=== PATIENT | female | born 1995 | race Caucasian/White ===

== ENCOUNTER → 2022-11-18 15:49 | Outpatient (CLI) | payer OTHER, SELFPAY ==
--- NOTE | 2022-11-18 | DI.US.S_ITS ---
PROCEDURE: US OB >= 14 WEEKS FETUS INDICATIONS: ANATOMY OUTSIDE/PRIOR DATING DATA: Last menstrual period (LMP): 06/25/2022. LMP-based estimated date of delivery (KRISTINA): 04/01/2023. First dating scan (date and location): Today. TECHNIQUE: Real-time scanning was performed of the fetus, with image documentation and biometric measurements. COMPARISON: None. FINDINGS: General: A single living intrauterine gestation is present. Presentation: Cephalic. Placenta: Placental position is anterior , without previa. Amniotic fluid index: 13.7 cm, normal range is 5-24 cm. Single deepest vertical pocket is 3.9 cm. heart rate: 155 beats per minute. Maternal cervical canal: 3.9 cm long. Normal lower limit is 2.5 cm. biometrics: Biparietal diameter: 4.5 cm. 19 weeks 4 days Head circumference: 17.7 cm. 20 weeks 1 day. Abdominal circumference: 14.6 cm. 19 weeks 6 days. Femur length: 3.2 cm. 20 weeks 0 days. Clinically estimated gestational age: 20 weeks 6 days Composite gestational age from present scan: 19 weeks 6 days Estimated weight and percentile: 324 grams, 10th percentile based on estimated gestational age by LMP. Anatomic survey: Neuro: Ventricles are non-dilated at less than 10 mm. Cisterna magna is normal at 3-11 mm. Cerebellum is normal in size and morphology. Nuchal skin fold: Normal at less than 6 mm between 14-21 weeks gestational age. Face: Nose and lips, facial profile are normal. Spine: No evidence for spina bifida. Heart: 4-chambered heart is present, with normal ventricular outflow tracts. Diaphragm: Diaphragm is intact. Stomach: Left-sided stomach is present. Kidneys: No hydronephrosis. Normal is less than 5 mm in 2nd trimester, less than 7 mm in 3rd trimester. Cord: 3-vessel cord has orthotopic insertion. Bladder: Normal in size. Extremities: All 4 extremities identified. IMPRESSION: 1. Single living intrauterine with an a composite gestational age of 19 weeks 6 days. 2. anatomy is fully visualized and is normal. We strive to produce accurate, complete, and clear reports of imaging services. To assist us in improving patient care, this report was composed using standard report templates and voice recognition software. Therefore, it may contain abnormal punctuation, insertions and/or omissions. Occasional wrong-word or sound-alike substitutions may occur. Though we review the report and make efforts to correct it, we do recommend that the report be read carefully in proper context to recognize any text inaccuracies. Dictated by: Darwin Sommers M.D. on 11/18/2022 at 17:18 Approved by: Darwin Sommers M.D. on 11/18/2022 at 17:21
== END ==
PROVIDERS: Referring Provider Advanced Practice Midwife; Visit Provider Advanced Practice Midwife
DX: Z34.92 Encounter for supervision of normal pregnancy, unspecified, second trimester (principal); Z3A.19 19 weeks gestation of pregnancy
CPT/HCPCS: 76811

== ENCOUNTER → 2023-01-21 13:17 | Outpatient (CLI) | payer OTHER, SELFPAY ==
--- NOTE | 2023-01-21 | DI.US.S_ITS ---
PROCEDURE: US OB FOLLOW UP INDICATIONS: growth check OUTSIDE/PRIOR DATING DATA: Last menstrual period (LMP): 06/25/2022. LMP-based estimated date of delivery (KRISTINA): 04/01/2023. First dating scan (date and location): 08/10/2020. Estimated date of delivery (KRISTINA) from first dating scan: 04/04/2023. The calculations are made using the working KRISTINA of 04/01/2023. TECHNIQUE: Real-time scanning was performed of the fetus, with image documentation and biometric measurements. COMPARISON: [facility], , US ABDOMEN LIMITED, 08/10/2022, 21:11. [facility], US OB >= 14 WEEKS FETUS, 11/18/2022, 16:14. [facility], , OB FIRST TRIMESTER W TRANSVAG, 08/10/2022, 20:47. FINDINGS: General: A single living intrauterine gestation is present. Presentation: Breech. Placenta: Placental position is anterior , without previa. Amniotic fluid index: 12.0 cm, normal range is 5-24 cm. Single deepest vertical pocket is 4.0 cm. heart rate: 141 beats per minute. Maternal cervical canal: 3.5cm long. Normal lower limit is 2.5 cm. biometrics: Biparietal diameter: 28 weeks 0 day Head circumference: 30 weeks 3 days Abdominal circumference: 29 weeks 1 day Femur length: 28 weeks 4 days Clinically estimated gestational age: 30 weeks 0 day Composite gestational age from present scan: 29 weeks 0 day Estimated weight and percentile: 1313 gm; 11% IMPRESSION: 1. A single living intrauterine gestation redemonstrated. 2. Interval growth within normal limits. The estimated weight is at the 11th percentile for gestational age. We strive to produce accurate, complete, and clear reports of imaging services. To assist us in improving patient care, this report was composed using standard report templates and voice recognition software. Therefore, it may contain abnormal punctuation, insertions and/or omissions. Occasional wrong-word or sound-alike substitutions may occur. Though we review the report and make efforts to correct it, we do recommend that the report be read carefully in proper context to recognize any text inaccuracies. Dictated by: Torres Quevedo M.D. on 01/21/2023 at 16:40 Approved by: Torres Quevedo M.D. on 01/21/2023 at 16:45
== END ==
PROVIDERS: Referring Provider Advanced Practice Midwife; Visit Provider Advanced Practice Midwife
DX: O36.5930 Maternal care for other known or suspected poor fetal growth, third trimester, not applicable or unspecified (principal); Z36.2 Encounter for other antenatal screening follow-up; Z3A.29 29 weeks gestation of pregnancy
CPT/HCPCS: 76816